=== PATIENT | female | born 1950 | race Caucasian/White ===

== ENCOUNTER 2022-07-24 08:46 | Emergency (ER) | payer MEDICARE, BC ==
[2022-07-24] MEDS ORDERED: Ondansetron PF 4 MG/2 ML Vial ONE (09:18)
[2022-07-24] MEDS ORDERED: Aspirin Chewable 81 MG TAB ONE (09:18)
[2022-07-24 09:30] LABS: D-Dimer Test 0.4 *mcg/mL (0.27-0.43)
[2022-07-24 09:41] LABS: Magnesium 1.8 mg/dL (1.6-2.6)
[2022-07-24 09:42] LABS: CKMB 2.2 ng/mL (0-6.6)
[2022-07-24 09:54] LABS: ALT (SGPT) 16 U/L (8-55); AST (SGOT) 21 U/L (5-34); Albumin 4.4 g/dL (3.4-4.8); Alkaline Phosphatase 51 U/L (40-110); Anion Gap 12 mmol/L (10-20); BUN (Urea Nitrogen) 15 mg/dL (9.8-20.1); Bilirubin, Total 0.6 mg/dL (0.2-1.2); Calc. Creatinine Clearance 0 mL/min (70-130); Calcium 9.8 mg/dL (7.8-10.44); Carbon Dioxide 28 mmol/L (23-31); Chloride 101 mmol/L (98-107); Estimated GFR 79; Globulin 3.2 g/dL (2.4-3.5); Glucose 99 mg/dL (83-110); Potassium 3.7 mmol/L (3.5-5.1); Protein, Total 7.6 g/dL (5.8-8.1); Sodium 137 mmol/L (136-145)
[2022-07-24 09:57] LABS: INR-International Normal Ratio 0.9
[2022-07-24 11:06] LABS: #Basophils 0.1 thou/uL (0.0-0.2); #Eosinphils 0.1 thou/uL (0.0-0.7); #Lymphocytes 2.3 thou/uL (1.20-3.40); #Monocytes 0.4 thou/uL (0.11-0.59); #Neutrophils 4.9 thou/uL (1.40-6.50); %Basophils 0.9 % (0.0-1.0); %Eosinophils 1.1 % (0.0-10.0); %Lymphocytes 29.2 % (21.0-51.0); %Monocytes 5.2 % (0.0-10.0); %Neutrophils 63.5 % (42.0-75.0); Hemoglobin 13.9 g/dL (12.0-16.0); Mean Corpuscular HGB CONC 32.5 g/dL (32.0-36.0); Mean Corpuscular Hemoglobin 29.6 pg (27.0-31.0); Mean Platelet Volume 6.4 fL (7.4-10.4); Platelet Count 278 thou/uL (130-400); RBC Distribution Width 12.1 % (11.5-14.5); White Blood Cell (WBC) Count 7.7 thou/uL (4.8-10.8)
[2022-07-24 11:54] LABS: Troponin I 0.042 ng/mL (< 0.028)
[2022-07-24] MEDS ORDERED: Enoxaparin Sodium 60 MG/0.6 ML SYRINGE ONE (22:31)
[2022-07-24 23:10] LABS: Troponin I 0.047 ng/mL (< 0.028)
== END 2022-07-24 23:10 | disposition short-term general hospital (02) ==
LOC: MADERS 08:46
DX: R07.9 Chest pain, unspecified (principal); R77.8 Other specified abnormalities of plasma proteins; F17.210 Nicotine dependence, cigarettes, uncomplicated
CPT/HCPCS: 71045; 80053; 82553; 83735; 83880; 84484; 85025; 85379; 85610; 85730; 96372; 96374; J1650; J2405